=== PATIENT | male | born 1935 | race Caucasian/White ===

== ENCOUNTER 2018-01-09 07:30 | Inpatient (IN) | payer MEDICARE, BC ==
[2018-01-09] MEDS ORDERED: Rocuronium 50 MG/5 ML Vial ONE (08:18)
[2018-01-09] MEDS ORDERED: Dexamethasone 4 MG/ML SDV ONE (08:18)
[2018-01-09] MEDS ORDERED: Ondansetron 4 MG/2 ML SDV ONE (08:18)
[2018-01-09] MEDS ORDERED: fentaNYL 250 MCG/5 ML SDV ONE (08:18)
[2018-01-09] MEDS ORDERED: Propofol 200 MG/20 ML SDV ONE ×3 (08:18→13:31)
[2018-01-09] MEDS ORDERED: Succinylcholine 200 MG/10 ML MDV ONE (08:18)
[2018-01-09] MEDS ORDERED: Povidone-Iodine 10% Soln 118.25 ML Bottle ONE (09:11)
[2018-01-09] MEDS ORDERED: Thrombin (Bovine) 5,000 Unit Kit ONE (09:11)
[2018-01-09] MEDS ORDERED: Acetaminophen 500 MG Tab PO ONE (10:15)
[2018-01-09] MEDS ORDERED: Scopolamine 1.5 MG Transdermal Patch TOP SCH (10:15)
[2018-01-09] MEDS ORDERED: Gabapentin 300 MG Cap PO ONE (10:15)
[2018-01-09] MEDS: Lactated Ringers 1,000 ML IV SCH (10:48)
[2018-01-09] MEDS ORDERED: ceFAZolin 2 GM in Premix Bag 1 BAG IV ONE (11:45)
[2018-01-09] MEDS ORDERED: Ketamine 500 MG/5 ML MDV IV SCH (11:45)
[2018-01-09] MEDS ORDERED: Ropivacaine 49.25 ML, Ketorolac 30 MG, EPINEPHrine 0.5 MG, cloNIDine 80 MCG, Sodium Chl... INJECT ONE ×5 (11:45)
[2018-01-09] MEDS ORDERED: Gelatin Sponge,Absorbable Pwd 1 GM Pkt ONE (12:30)
[2018-01-09] MEDS ORDERED: fentaNYL 100 MCG/2 ML SDV ONE (13:12)
[2018-01-09] MEDS: SODIUM CHLORIDE 0.9% IV SCH ×2 (13:13→15:19)
[2018-01-09] MEDS: TRANEXAMIC ACID IV SCH ×2 (13:13→15:19)
[2018-01-09] MEDS ORDERED: ePHEDrine 50 MG/ML SDV ONE (13:28)
[2018-01-09] MEDS ORDERED: Labetalol 20 MG/4 ML Syringe ONE (14:45)
[2018-01-09] MEDS ORDERED: Lactated Ringers 1,000 ML ONE (14:46)
[2018-01-09] MEDS ORDERED: oxyCODONE 5 MG Tab PO PRN (15:13)
[2018-01-09] MEDS ORDERED: Naloxone 0.4 MG/ML SDV IVPUSH PRN (15:13)
[2018-01-09] MEDS ORDERED: Acetaminophen 1,000 MG in Premix Bag 1 BAG IV ONE ×2 (15:13→16:30)
[2018-01-09] MEDS ORDERED: HYDROmorphone 1 MG/ML Syringe IVPUSH PRN (15:13)
[2018-01-09] MEDS ORDERED: Ondansetron 4 MG/2 ML SDV IVPUSH PRN (15:13)
[2018-01-09] MEDS ORDERED: Aluminum Hydroxide/Magnesium Hydroxide/Simethicone Susp 30 ML Cup PO PRN (15:13)
[2018-01-09] MEDS ORDERED: ceFAZolin 1 GM in Sodium Chloride 0.9% 50 ML IV SCH ×2 (15:15→18:00)
--- NOTE | 2018-01-09 17:04 | PCM.CONS ---
H&P History of Present Illness - General Date of Service: 01/09/18 Admit Problem/Dx: Admission Diagnosis/Problem Admission Diagnosis/Problem Lumbar spinal fusion Source of Information: Patient, Family, Provider, RN Notes Reviewed History Limitations: Reports: No Limitations - History of Present Illness Initial Comments - Free Text/Narative: Mr. Welsh is an 82-year-old gentleman who been asked to see by Dr. Roberto Wynn for assistance in medical management during the postoperative period. Mr. Welsh underwent spinal surgery earlier today by Dr. Wynn, he is doing well during the initial postoperative period. Denies symptoms of chest pain, shortness of breath, nausea or vomiting, and reports that his pain control is adequate. He is very healthy given his age and denies other significant problems. - Related Data Allergies/Adverse Reactions: Allergies Allergy/AdvReac Type Severity Reaction Status Date / Time No Known Allergies Allergy Verified 01/09/18 10:59 Home Medications: Home Meds Diclofenac Sodium [Voltaren] 1 applicful TOP ASDIRECTED 07/06/15 [History] Ezetimibe [Zetia] 10 mg PO DAILY 07/06/15 [History] Aspirin [Halfprin] 81 mg PO DAILY 07/12/16 [History] traMADol [Ultram] 50 mg PO Q8H PRN 07/12/16 [History] Past Medical History HEENT History: Reports: Impaired Vision Other HEENT History: nosebleeds Cardiovascular History: Reports: Prior Cardiac Arrest, Stents Musculoskeletal History: Reports: Back Pain, Chronic Other Musculoskeletal History: finger. probs with sciatica L leg. chronic pain shoulder R - Infectious Disease History Infectious Disease History: Reports: Chicken Pox, Measles, Mumps - Past Surgical History Head Surgeries/Procedures: Reports: None HEENT Surgical History: Reports: Cataract Surgery, Tonsillectomy Cardiovascular Surgical History: Reports: None, Coronary Artery Stent GI Surgical History: Reports: Colonoscopy Other Endocrine Surgeries/Procedures: thyroid bx negative Musculoskeletal Surgical History: Reports: None Dermatological Surgical History: Reports: None Social & Family History - Family History Family Medical History: Noncontributory - Tobacco Use Smoking Status *Q: Former Smoker Years of Tobacco use: 40 Used Tobacco, but Quit: Yes Month Tobacco Last Used: 1997 Second Hand Smoke Exposure: No - Caffeine Use Caffeine Use: Reports: None - Recreational Drug Use Recreational Drug Use: No H&P Review of Systems - Review of Systems: Review Of Systems: See Below Pulmonary: Reports: No Symptoms Cardiovascular: Reports: No Symptoms Gastrointestinal: Reports: No Symptoms Musculoskeletal: Reports: Back Pain Skin: Reports: No Symptoms Exam - Exam Exam: See Below - Vital Signs Vital Signs: Last Vital Signs Temp 95.3 F L 01/09/18 16:00 Pulse 73 01/09/18 16:00 Resp 16 01/09/18 16:00 BP 119/52 L 01/09/18 16:00 Pulse Ox 92 L 01/09/18 16:00 Weight: 148 lb - Exam Quality Assessment: DVT Prophylaxis General: Alert, Oriented, Cooperative, Mild Distress Neck: Supple, Trachea Midline, +2 Carotid Pulse wo Bruit Lungs: Clear to Auscultation, Normal Respiratory Effort Cardiovascular: Regular Rate, Regular Rhythm, Normal S1, Normal S2. No: Systolic Murmur, Diastolic Murmur GI/Abdominal Exam: Soft, Non-Tender, No Organomegaly, No Distention Extremities: Non-Tender, No Pedal Edema - Patient Data Lab Results Last 24 hrs: Laboratory Results - last 24 hr 01/09/18 Range/Units 10:15 Blood Type O POSITIVE Gel Antibody Screen Negative Consult PN Assessment/Plan Procedures: Procedures ASSAY OF CK (CPK) (07/06/15) ASSAY OF TROPONIN QUANT (07/06/15) BLOOD TYPING SEROLOGIC ABO (12/31/17) BLOOD TYPING SEROLOGIC RH(D) (12/31/17) CHEST X-RAY 2VW FRONTAL&LATL (07/06/15) COMPLETE CBC AUTOMATED (12/31/17) COMPLETE CBC W/AUTO DIFF WBC (07/06/15) COMPREHEN METABOLIC PANEL (12/31/17) CULTURE OTHR SPECIMN AEROBIC (12/31/17) ELECTROCARDIOGRAM TRACING (12/31/17) EMERGENCY DEPT VISIT (07/06/15) INJECT SPINE LUMBAR/SACRAL (10/04/16) MANUAL THERAPY 1/> REGIONS (07/30/15) MRI JNT OF LWR EXTRE W/O DYE (08/30/15) MRI LUMBAR SPINE W/O DYE (12/19/17) NJX INTERLAMINAR LMBR/SAC (08/08/17) OFFICE/OUTPATIENT VISIT NEW (11/16/16) ORTHOTIC MGMT&TRAINJ 1ST ENC (01/02/18) PT EVALUATION (06/01/15) RBC ANTIBODY SCREEN (12/31/17) ROUTINE VENIPUNCTURE (12/31/17) SELF CARE MNGMENT TRAINING (01/02/18) THERAPEUTIC EXERCISES (07/30/15) ULTRASOUND THERAPY (06/01/15) URINALYSIS AUTO W/O SCOPE (12/31/17) URINALYSIS AUTO W/SCOPE (07/06/15) X-RAY EXAM L-2 SPINE 4/>VWS (12/31/17) X-RAY EYE FOR FOREIGN BODY (06/10/15) Problem List Initiated/Reviewed/Updated: Yes My Orders Last 24 Hours: My Active Orders 01/10/18 09:00 Ezetimibe [Zetia] 10 mg PO DAILY Plan: ASSESSMENT AND RECOMMENDATIONS STATUS POST SPINE SURGERY-stable during the immediate postoperative period -Postoperative care per Dr. Roberto Wynn HYPERCHOLESTEROLEMIA -Continue outpatient medical management Requesting Provider: RODERICK Date Consult Requested: 01/09/18 Reason for Consult: Postoperative medical management Patient History Reviewed: Yes Admission H&P Reviewed: Yes
[2018-01-09] MEDS: ceFAZolin 1 GM in Premix Bag 1 BAG IV SCH (17:48)
[2018-01-09] MEDS ORDERED: Magnesium Hydroxide 400 MG/5 ML Susp 30 ML Cup PO SCH (21:00)
[2018-01-09] MEDS ORDERED: Sennosides 8.6 MG Tab PO SCH (21:00)
[2018-01-09] MEDS: Magnesium Hydroxide 400 MG/5 ML Susp 30 ML Cup PO SCH (21:02)
[2018-01-09] MEDS: Sennosides 8.6 MG Tab PO SCH (21:03)
--- NOTE | 2018-01-09 23:19 | OR ---
DATE OF PROCEDURE: 01/09/2018 PREOPERATIVE DIAGNOSES: 1. Lumbar stenosis, L3-L4 and L4-L5. 2. Lumbar spondylolisthesis, L3-L4 and L4-L5. 3. Lumbar radiculopathy, L3-L4 and L4-L5 with neurogenic claudication. POSTOPERATIVE DIAGNOSES: 1. Lumbar stenosis, L3-L4 and L4-L5. 2. Lumbar spondylolisthesis, L3-L4 and L4-L5. 3. Lumbar radiculopathy, L3-L4 and L4-L5 with neurogenic claudication. PROCEDURES: 1. Posterior lumbar fusion, L3-L4. 2. Posterior lumbar fusion, L4-L5. 3. Posterior instrumentation, L3-L4 and L4-L5. 4. Decompression required in addition to fusion at L3-L4. 5. Decompression required in addition to fusion L4-L5. 6. Autograft obtained from lamina of L3-L4 and L4-L5 mixed with Glob[employer] Signify allograft and placed in posterior lateral gutters of the transverse processes bilaterally. WAITER/WAITRESS COUNTER: DENNIS Garcia. Physician rn first assistant, Anita Klein NP, played an essential role in assisting in this case, helping to position the patient, retract structures as needed, as well as suturing and cutting sutures as indicated. Her presence improved patient's safety and decreased operative time. ANESTHESIA: General endotracheal intubation. FLUIDS: Lactated Ringer's solution. ESTIMATED BLOOD LOSS: 150 mL. COMPLICATIONS: None. SPECIMEN: None. DISCHARGE DISPOSITION: Stable to PACU. HISTORY AND INDICATIONS FOR THE PROCEDURE: The patient was seen preoperatively in the clinic. He had failed nonoperative treatment including medical management, exercise, and epidural steroid injections. He was starting to suffer from increased neurogenic claudication and weakness. Preoperative imaging confirmed the above-mentioned diagnosis. Risks and benefits of the procedure were explained to the patient. Informed consent was obtained. DETAILS OF THE PROCEDURE: The patient was seen preoperatively by myself and the Anesthesia staff in the preop holding area where the operative site was marked. He was brought to the operative suite by the Anesthesia staff where general anesthesia was administered. Neuromonitoring leads were placed, normal at baseline and remained normal throughout the case. Sterile Pruett catheter was placed. The fluoroscopy unit was sterilely draped. The patient was then flipped onto a Anupam table. All extremities were found to be well padded. The patient was then prepped and draped in a sterile manner. Time-out was called identifying the correct patient, correct procedure, the correct site, and antibiotics had begun within appropriate period of time. Lateral fluoroscopy was then used to identify the L3 through L5 pedicles. A midline incision was made over the spinous processes of L2 through L5. Bleeding during the case was controlled with Bovie electrocautery and Aquamantys 5.0 unit. We used cerebellars for initial superficial retraction. I then used a Bovie electrocautery and a Katz elevator to go down over the respective laminas of L3 through L5, over the respective lamina facets, pars, and down to the transverse processes bilaterally of L3, L4, and L5. After this had been accomplished, I inserted two 65 mm Versa- Trac blades for retraction. I also used a cerebellar deeply for retraction at times. I then used Bovie electrocautery to clear any soft tissue off as well as rongeurs and used Kerrison to remove the overgrown facet joints dorsally and laterally in order to identify the pars at L3-L4 and L4-L5. I then started on the right side and placed my L5 pedicle screw first. The process for this was to drill to the lateral aspect of the pars at the middle point of the transverse process. I then use a PediGuard unit from [employer] to create the track through the pedicle and then used a pedicle probe to ensure that I was in the pedicle and then placed an undersized tap by 2 mm, then pedicle probe again and then placed my final screw. All screws were 6.5 x 50 mm with the exception of the right L4 screw, which was a 45 mm. At times, I would check to make sure that our position was good on our AP including our lateral. I did the right side, then did the same process on the left side. After this had been completed, I took films to ensure that the screws were in good position and then tested them, all screws tested well within normal limits with a low screw testing at 17. After this had been accomplished, I then focused on our laminectomy. I then removed our supraspinous ligaments and interspinous ligaments at L3-L4 and L4-L5. I then removed the inferior spinous process of L3 and then the remainder of the spinous process of L3 and then using medium rongeurs removed as much of the inferior lamina as possible. I then used 5 Kerrison to go from inferior to superior to the lamina where the ligamentum flavum attached and then went laterally bilaterally. At that point, I did use a long ball and protected the dura underneath the flavum with the cottonoid and then removed the flavum as well as performing medial facetectomies bilaterally. I then confirmed our peak decompression on fluoroscopy and was able to pass the long ball out the foramen bilaterally. I repeated this again at L4-L5 and confirmed our levels. After this had been accomplished, I placed a small amount of FloSeal bilaterally in the lateral recesses and then tamped access with a Ray-Nereida. We then focused on placing the rods. We placed two 75 mm rods, placed the setscrews, and then tied these down to torque specifications. We then copiously irrigated with 3 L Betadine infused irrigation. I then decorticated the transverse processes bilaterally and then used the graft from our laminectomy. It was mixed with Signify from [employer] which was an allograft and then placed bilaterally over the transverse processes in the posterior lateral gutters. After this had been accomplished, I then applied the remainder of the FloSeal, tamped the excess and dry, and then applied 1-1/2 packets of Gelfoam powder. We then closed deeply with 1 Stratafix, 2 Stratafix, 3-0 Stratafix, and finally Prineo. Sterile dressing was then placed and the patient was then flipped to the supine position on the Anupam table. We discontinued monitoring. He was flipped onto his hospital bed. Neuromonitoring leads were removed and he was taken to the PACU in stable condition. Johnny Wynn DO /[id number]
[2018-01-10] MEDS: ceFAZolin 1 GM in Premix Bag 1 BAG IV SCH ×2 (02:00→10:20)
[2018-01-10] MEDS ORDERED: Lactated Ringers 250 ML IV ONE (03:15)
--- NOTE | 2018-01-10 03:21 | PCM.SN ---
- Free Text/Narrative Note: time 3:10 AM call from 2 N. nursing concerns of low blood pressure, 93/40 pulse 64 respirations 16, O2 sat 94% a; hypotensive p; give fluid bolus lactated Ringer's 250 ML's over one hour then return to previous rate of 100ml/hr Continue present plan of care
[2018-01-10] MEDS: Lactated Ringers 1,000 ML IV SCH (05:15)
[2018-01-10] MEDS ORDERED: Sodium Chloride 0.9% 250 ML IV SCH (07:45)
[2018-01-10] MEDS ORDERED: Ezetimibe 10 MG Tab PO SCH (09:00)
[2018-01-10] MEDS: Sennosides 8.6 MG Tab PO SCH (10:21)
[2018-01-10] MEDS: Magnesium Hydroxide 400 MG/5 ML Susp 30 ML Cup PO SCH (10:21)
[2018-01-10 11:15] VITALS: BP 90/42
[2018-01-10] MEDS ORDERED: Acetaminophen/oxyCODONE 325-5 MG Tab PO PRN (15:13)
== END 2018-01-10 16:21 | disposition home or self-care (01) | DRG 460 ==
LOC: EDSTATUS 07:30 → JP.SDSSCHI 10:02 → JP.SDS 10:02 → JP.MS 15:13
PROVIDERS: ADMIT Nurse Practitioner Family; ATTEND Orthopaedic Surgery
PROC: 01NB0ZZ Release Lumbar Nerve, Open Approach (ICD-10-PCS; principal; 2018-01-09)
PROC: 0SG1071 Fusion of 2 or more Lumbar Vertebral Joints with Autologous Tissue Substitute, Posterior Approach, Posterior Column, Open Approach (ICD-10-PCS; 2018-01-09)
DX: M48.062 Spinal stenosis, lumbar region with neurogenic claudication (principal); M43.16 Spondylolisthesis, lumbar region; M54.16 Radiculopathy, lumbar region
CPT/HCPCS: 36415; 76001; 80048; 85025; 86850; 86900; 86901; 97162-GP; 97165-GO; 97530-GP; 97535-GP; A9270-GY; J0131; J0171; J0330; J0690; J0735; J1100; J1170; J1885; J2405; J2704; J2795; J3010; J3490; J7030; J7050; J7120

== ENCOUNTER 2018-01-12 11:59 | Emergency (ER) | payer MEDICARE, BC ==
[2018-01-12 12:40] VITALS: BP 99/42
--- NOTE | 2018-01-12 13:27 | EDM.PDOC ---
ED HPI GENERAL MEDICAL PROBLEM - General Chief Complaint: Wound Recheck Stated Complaint: BACK DRAINAGE SURGERY 01/09/18 Time Seen by Provider: 01/12/18 13:15 Source of Information: Reports: Patient, Old Records History Limitations: Reports: No Limitations - History of Present Illness INITIAL COMMENTS - FREE TEXT/NARRATIVE: 82 yo male had spinal fusion the middle of this past week. Today he had drainage from the wound. No fever. Is not getting adequate pain relief with his current medication dosing. Onset: Today Onset Date: 01/12/18 Onset Time: 11:00 Duration: Minutes:, Improving Location: Reports: Back (low) Quality: Reports: Throbbing (since surgery) Severity: Mild (drainage now less after initial spurt of fluid) Improves with: Reports: Other (? time, is slowing) Worsens with: Reports: None Context: Reports: Other (Recent spinal surgery) Associated Symptoms: Reports: No Other Symptoms Treatments MECHANICAL FITTER: Reports: Other (see below) (Tramadol 50 mg q 8 h without adequate relief.) Lower Back Pain Score (Numeric/FACES): 8 - Related Data Allergies Allergy/AdvReac Type Severity Reaction Status Date / Time No Known Allergies Allergy Verified 01/12/18 12:58 Home Meds: Home Meds Diclofenac Sodium [Voltaren] 1 applicful TOP ASDIRECTED 07/06/15 [History] Ezetimibe [Zetia] 10 mg PO DAILY 07/06/15 [History] Aspirin [Halfprin] 81 mg PO DAILY 07/12/16 [History] traMADol [Ultram] 50 mg PO Q8H PRN 07/12/16 [History] Acetaminophen/oxyCODONE [Percocet 325-5 MG] 1 tab PO Q6HR PRN #90 tablet [Rx] Past Medical History HEENT History: Reports: Impaired Vision Other HEENT History: nosebleeds Cardiovascular History: Reports: DC, Prior Cardiac Arrest, Stents Musculoskeletal History: Reports: Back Pain, Chronic Other Musculoskeletal History: finger. probs with sciatica L leg. chronic pain shoulder R - Infectious Disease History Infectious Disease History: Reports: Chicken Pox, Measles, Mumps - Past Surgical History HEENT Surgical History: Reports: Cataract Surgery, Tonsillectomy Cardiovascular Surgical History: Reports: Coronary Artery Stent GI Surgical History: Reports: Colonoscopy Endocrine Surgical History: Reports: Thyroid Biopsy Other Endocrine Surgeries/Procedures: thyroid bx negative Neurological Surgical History: Reports: Other (See Below) Other Neurological Surgeries/Procedures: fixed herniated disc 01/09/2018 Social & Family History - Family History Family Medical History: Noncontributory - Tobacco Use Smoking Status *Q: Never Smoker Years of Tobacco use: 40 Used Tobacco, but Quit: Yes Month Tobacco Last Used: 1997 Second Hand Smoke Exposure: No - Caffeine Use Caffeine Use: Reports: None - Recreational Drug Use Recreational Drug Use: No ED ROS GENERAL - Review of Systems Review Of Systems: See Below Constitutional: Reports: No Symptoms Respiratory: Reports: No Symptoms Cardiovascular: Reports: No Symptoms GI/Abdominal: Reports: No Symptoms : Reports: No Symptoms Musculoskeletal: Reports: Back Pain (since surgery) Skin: Reports: Wound (surgical wound to low lumbar spine) Neurological: Reports: No Symptoms ED EXAM, SKIN/RASH Exam: See Below Exam Limited By: No Limitations General Appearance: Alert, WD/WN, No Apparent Distress Head: Atraumatic, Normocephalic Respiratory/Chest: No Respiratory Distress, No Accessory Muscle Use Cardiovascular: Regular Rate, Rhythm GI/Abdominal: Normal Bowel Sounds, Soft, Non-Tender, No Distention Back Exam: Normal Inspection. No: CVA Tenderness (R), CVA Tenderness (L) Extremities: Normal Inspection, Normal Range of Motion Neurological: Alert, Oriented, CN II-XII Intact, Normal Cognition, No Motor/ Sensory Deficits Psychiatric: Normal Affect, Normal Mood Skin: Warm, Dry, Normal Color, No Rash, Wound/Incision (surgical wound lower lumbar spine). No: Diaphoretic, Ecchymosis, Erythema, Increased Warmth Location, Skin: Back (low lumbar) Characteristics: Linear Associated features: Tenderness. No: Warmth, Swelling, Induration Lymphatic: No Adenopathy Course - Vital Signs Last Recorded V/S: Last Vital Signs Temp 36.5 C 01/12/18 12:56 Pulse 64 01/12/18 12:56 Resp 16 01/12/18 12:56 BP 99/42 L 01/12/18 12:56 Pulse Ox 95 01/12/18 12:56 Departure - Departure Time of Disposition: 13:30 Disposition: Home, Self-Care 01 Condition: Good Clinical Impression: Encounter for wound re-check - Discharge Information Referrals: Francis Gomez MD [Primary Care Provider] - Forms: ED Department Discharge Additional Instructions: May increase tramadol to 2 every 6 hrs as needed for pain control. Also, may take acetaminophen 1000 mg every 6 hrs for added relief. Recheck next week with Dr. Wynn if you still have questions/concerns.
== END 2018-01-12 13:39 | disposition home or self-care (01) ==
LOC: JP.ED 11:59
DX: Z47.89 Encounter for other orthopedic aftercare (principal); Z87.891 Personal history of nicotine dependence; Z95.5 Presence of coronary angioplasty implant and graft; Z79.82 Long term (current) use of aspirin; Z79.899 Other long term (current) drug therapy; Z98.890 Other specified postprocedural states; Z98.1 Arthrodesis status
CPT/HCPCS: 99283

== ENCOUNTER 2018-03-28 05:42 | Day surgery (SDC) | payer MEDICARE, BC ==
[2018-03-28] MEDS ORDERED: Dextrose 5%-Lactated Ringers 1,000 ML IV SCH (06:00)
[2018-03-28] MEDS ORDERED: Glycopyrrolate 0.2 MG/ML 2 ML SDV IVPUSH ONE (07:00)
[2018-03-28] MEDS ORDERED: Midazolam 1 MG/ML 2 ML SDV ONE (07:04)
[2018-03-28] MEDS ORDERED: fentaNYL 100 MCG/2 ML SDV ONE (07:04)
[2018-03-28] MEDS ORDERED: Propofol 200 MG/20 ML SDV ONE (07:04)
[2018-03-28] MEDS ORDERED: Iohexol 647 MG/ML 10 ML SDV PO PRN (09:04)
[2018-03-28] MEDS ORDERED: Iopamidol 612 MG/ML 100 ML Bottle IV PRN (09:04)
[2018-03-28] MEDS ORDERED: Sodium Chloride 0.9% 80 ML IV SCH (09:15)
[2018-03-28 10:08] VITALS: BP 129/68
--- NOTE | 2018-03-28 10:47 | CT ---
Chest Abdomen Pelvis w Cont INDICATION: Distal Esophago mass noted on EGD TECHNIQUE: CT images of the chest, abdomen and pelvis performed. Coronal reformatted images obtaine d. Exam performed with oral and IV contrast Dosage reduction and iterative reconstruction techniques employed. COMPARISON: None FINDINGS: Chest: There is distal esophageal wall thickening consistent with clinical history of distal esophage al mass. This is at the level of the GE junction and appears to extend partly into the cardia of the stomach. Proximal to this the esophagus is mildly distended with air and contrast. No mediastinal solitario nopathy. 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 There are coronary artery calcifications. No suspicious pulmonary nodules. No pleural effusions. Abdomen pelvis: Multiple hepatic masses consistent with metastatic disease, largest in the right lobe posteriorly measuring 5.7 cm. Adrenal glands negative. No renal masses. There is retroperitoneal solitario nopathy. Largest node measures 2.5 cm. No ascites. Prostate is mildly enlarged. Postoperative changes fusion L3-L5. No suspicious bone lesions seen. IMPRESSION: Distal esophageal wall thickening extending to the cardia the stomach consistent with c linical history of esophageal mass. Hepatic metastases and retroperitoneal adenopathy. Discussed with Dr. Parveen Wynn.
--- NOTE | 2018-04-02 15:17 | OR ---
DATE OF PROCEDURE: 03/28/2018 PREOPERATIVE DIAGNOSIS: Dysphagia and weight loss. 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 OPERATIVE PROCEDURE: Esophagogastroduodenoscopy with biopsies of distal esophageal mass. ANESTHESIA: IV sedation. INDICATION FOR PROCEDURE: This is an 82-year-old, who is presenting with some dysphagia and weight loss. He is undergoing upper GI endoscopy with biopsies or dilation as indicated. Potential risks including bleeding and perforation were discussed, and the patient wishes to proceed. DETAILS OF PROCEDURE: The patient was taken to the operating room and placed in a left lateral decubitus position. IV sedation was administered, after which the upper GI endoscope was passed orally through the length of the esophagus and into the stomach with retroflexion view of the fundus, thereafter through the pyloric channel and into the proximal duodenum. Findings included normal hypopharynx, larynx, upper esophageal sphincter. Unfortunately, abnormal distal esophagus. The patient was noted to have a large mass located just above the esophagogastric junction. There was a small secondary mass extending above the mucosal surface, just proximal to that. This was friable and highly suggestive of a carcinoma. Beyond that, there was a small hiatal hernia present. Remainder of the gastric and duodenal exams were unremarkable. At this point, multiple biopsies were obtained from the esophageal mass and sent for histologic evaluation. Minimal bleeding from the biopsy site was seen and the procedure was then concluded. The patient will have a CT scan of the chest and abdomen and pelvis today for additional staging of what is likely a distal esophageal carcinoma. Also obtained CBC, CMP, and CEA and the patient will be set up an appointment with Medical Oncology next week. Joce Wynn MD /[id number]
== END 2018-03-28 11:02 | disposition home or self-care (01) ==
LOC: JP.SDS 05:42
PROVIDERS: ATTEND Surgery
DX: C15.5 Malignant neoplasm of lower third of esophagus (principal); K44.9 Diaphragmatic hernia without obstruction or gangrene; I10 Essential (primary) hypertension; Z88.5 Allergy status to narcotic agent
CPT/HCPCS: 36415; 43239; 71260; 74177; 80053; 82378; 85027; J2250; J2704; J3010; J7030; J7042; Q9967; 88305; 88341; 88342; J3490

== ENCOUNTER 2018-04-11 22:36 | Emergency (ER) | payer MEDICARE, BC ==
--- NOTE | 2018-04-11 23:13 | EDM.PDOC ---
ED HPI GENERAL MEDICAL PROBLEM - General Chief Complaint: Chest Pain Stated Complaint: MEDICAL VIA NORTH Time Seen by Provider: 04/11/18 22:50 Source of Information: Reports: Patient, EMS, Family History Limitations: Reports: No Limitations - History of Present Illness INITIAL COMMENTS - FREE TEXT/NARRATIVE: 82-year-old male arrives by ambulance after a near syncopal episode and chest pain. He has known esophageal cancer, had an oncology consult 2 days ago and an echocardiogram this morning to evaluate for starting chemotherapy. He does have a history of an [place] 22 years ago. Tonight when he laid down he had pain in his back, after 10 minutes it moved to his chest. He did not feel short of breath or diaphoretic, he did take a nitroglycerin which helped, a second nitroglycerin and the pain was gone. He then got up and was very lightheaded and dizzy, diaphoretic and almost fainted so called the ambulance. His symptoms are now gone. Been complaining of dark stools for the past couple of weeks. The oncologist thought his tumor may be bleeding. Onset: Sudden Duration: Minutes: (Pain lasted 15-20 minutes) Location: Reports: Chest, Back Severity: Moderate Associated Symptoms: Reports: Diaphoresis, Malaise, Syncope, Weakness - Related Data Allergies Allergy/AdvReac Type Severity Reaction Status Date / Time tramadol Allergy Vomiting Verified 01/14/18 13:05 Home Meds: Home Meds Diclofenac Sodium [Voltaren] 1 applicful TOP ASDIRECTED 07/06/15 [History] Ezetimibe [Zetia] 10 mg PO DAILY 07/06/15 [History] Aspirin [Halfprin] 81 mg PO DAILY 07/12/16 [History] Multivitamin [Multi-Vitamin Daily] 1 each PO DAILY 03/26/18 [History] Nitroglycerin [Nitrostat] 0.4 mg SL ASDIRECTED PRN 03/26/18 [History] Tadalafil [Cialis] 10 mg PO DAILY PRN 03/26/18 [History] [place] 1 tab PO BID 03/28/18 [History] Past Medical History HEENT History: Reports: Impaired Vision Other HEENT History: nosebleeds; wears glasses Cardiovascular History: Reports: [place], Prior Cardiac Arrest, Stents Gastrointestinal History: Reports: Chronic Diarrhea, GERD Musculoskeletal History: Reports: Back Pain, Chronic, Other (See Below) Other Musculoskeletal History: finger. probs with sciatica L leg. chronic pain shoulder R. Low back incision check Neurological History: Reports: None Endocrine/Metabolic History: Reports: None Oncologic (Cancer) History: Reports: Esophageal - Infectious Disease History Infectious Disease History: Reports: Chicken Pox, Measles, Mumps - Past Surgical History Head Surgeries/Procedures: Reports: None HEENT Surgical History: Reports: Cataract Surgery, Tonsillectomy Cardiovascular Surgical History: Reports: Coronary Artery Stent GI Surgical History: Reports: Colonoscopy Endocrine Surgical History: Reports: Thyroid Biopsy Neurological Surgical History: Reports: Other (See Below) Other Neurological Surgeries/Procedures: fixed herniated disc 01/09/2018 Musculoskeletal Surgical History: Reports: Other (See Below) Other Musculoskeletal Surgeries/Procedures:: s/p lumbar fusion Dermatological Surgical History: Reports: None Social & Family History - Family History Family Medical History: Noncontributory - Tobacco Use Smoking Status *Q: Never Smoker - Caffeine Use Caffeine Use: Reports: Coffee, Soda, Tea - Recreational Drug Use Recreational Drug Use: No ED ROS GENERAL - Review of Systems Review Of Systems: See Below Constitutional: Reports: Malaise, Weakness. Denies: Fever, Chills, Weight Gain HEENT: Reports: No Symptoms Respiratory: Denies: Shortness of Breath Cardiovascular: Reports: Chest Pain, Lightheadedness GI/Abdominal: Reports: Black Stool. Denies: Abdominal Pain, Nausea, Vomiting : Reports: No Symptoms Skin: Reports: Pallor, Diaphoresis Neurological: Reports: Dizziness, Weakness ED EXAM, GENERAL - Physical Exam Exam: See Below Exam Limited By: No Limitations General Appearance: Alert, No Apparent Distress Eye Exam: Bilateral Eye: Other (Pale conjunctiva) Respiratory/Chest: No Respiratory Distress, Lungs Clear, Other (I cannot reproduce chest wall tenderness with palpation) Cardiovascular: Regular Rate, Rhythm. No: Tachycardia GI/Abdominal: Soft, Non-Tender Extremities: No: Pedal Edema Neurological: Alert, Oriented Psychiatric: Normal Affect, Normal Mood Skin Exam: Pallor Course - Vital Signs Last Recorded V/S: Last Vital Signs Temp 97.8 F 04/11/18 22:43 Pulse 68 04/12/18 00:45 Resp 16 04/12/18 00:45 BP 107/46 L 04/12/18 00:45 Pulse Ox 96 04/12/18 00:45 - Orders/Labs/Meds Orders: Active Orders 24 hr Category Date Time Status Chest 2V [CR] Routine Exams 04/12/18 00:22 Taken Labs: Laboratory Tests 04/11/18 04/11/18 04/11/18 Range/Units 23:19 23:19 23:19 WBC 6.4 (4.5-11.0) K/uL RBC 2.29 L (4.30-5.90) M/uL Hgb 7.2 L D (12.0-15.0) g/dL Hct 22.0 L (40.0-54.0) % MCV 96 (80-98) fL MCH 31 (27-31) pg MCHC 33 (32-36) % Plt Count 210 (150-400) K/uL Neut % (Auto) 79 H (36-66) % Lymph % (Auto) 7 L (24-44) % [place] % (Auto) 13 H (2-6) % Eos % (Auto) 1 L (2-4) % Baso % (Auto) 0 (0-1) % Sodium 138 L (140-148) mmol/L Potassium 4.3 (3.6-5.2) mmol/L Chloride 105 (100-108) mmol/L Carbon Dioxide 26 (21-32) mmol/L Anion Gap 11.3 (5.0-14.0) mmol/L BUN 25 H (7-18) mg/dL Creatinine 1.1 (0.8-1.3) mg/dL Est Cr Clr Drug Dosing 42.44 mL/min Estimated GFR (MDRD) > 60 (>60) Glucose 116 H (74-106) mg/dL Calcium 7.8 L (8.5-10.1) mg/dL Total Bilirubin 0.3 (0.2-1.0) mg/dL AST 96 H D (15-37) U/L ALT 75 D (12-78) U/L Alkaline Phosphatase 316 H (46-116) U/L Troponin I 1.083 H* (0.000-0.056) ng/mL Total Protein 5.4 L (6.4-8.2) g/dL Albumin 2.3 L (3.4-5.0) g/dL Globulin 3.1 (2.3-3.5) g/dL Albumin/Globulin Ratio 0.7 L (1.2-2.2) - Re-Assessments/Exams Free Text/Narrative Re-Assessment/Exam: 04/11/18 23:12 CBC, CMP and troponin were obtained. Records from [place] were obtained, his hemoglobin was 9.2 yesterday. 04/11/18 23:33 Hemoglobin is now 7.2. Troponin was 1.08. Patient did not redevelop any symptoms. Phone consultation was made to [facility] and acceptance was obtained from the hospitalist service. 04/12/18 03:52 Chest xray normal Departure - Departure Time of Disposition: 02:06 Disposition: DC/Tfer to Other 70 Condition: Fair Clinical Impression: Blood loss anemia, Elevated troponin GI bleed Qualifiers: GI bleed type/associated pathology: unspecified gastrointestinal hemorrhage type Qualified Code(s): K92.2 - Gastrointestinal hemorrhage, unspecified Esophageal cancer Qualifiers: Malignant neoplasm of esophagus location: lower third Qualified Code(s): C15.5 - Malignant neoplasm of lower third of esophagus - Discharge Information Referrals: PCP,None [Primary Care Provider] - Forms: ED Department Discharge Care Plan Goals: Patient is be transferred to [facility] to the hospitalist service for cardiology, oncology and gastroenterology consultations. - My Orders Last 24 Hours: My Active Orders 04/12/18 00:22 Chest 2V [CR] Routine - Assessment/Plan Last 24 Hours: My Active Orders 04/12/18 00:22 Chest 2V [CR] Routine
[2018-04-12 01:15] VITALS: BP 107/46
--- NOTE | 2018-04-12 09:04 | CR ---
CHEST: 2 view CLINICAL HISTORY:Vomiting COMPARISON:2014 FINDINGS: Heart size and pulmonary vascularity are normal. There are atherosclerotic changes in the aorta. No infiltrate, effusion or pneumothorax is seen. IMPRESSION: No acute cardiopulmonary process or significant change from prior study
== END 2018-04-12 01:55 | disposition other institution (70) ==
LOC: JP.ED 22:36
DX: C15.5 Malignant neoplasm of lower third of esophagus (principal); D50.0 Iron deficiency anemia secondary to blood loss (chronic); K92.2 Gastrointestinal hemorrhage, unspecified; R79.89 Other specified abnormal findings of blood chemistry; I25.2 Old myocardial infarction; K21.9 Gastro-esophageal reflux disease without esophagitis; Z79.899 Other long term (current) drug therapy; Z88.5 Allergy status to narcotic agent; Z79.82 Long term (current) use of aspirin
CPT/HCPCS: 36415; 71046; 71046-26; 80053; 84484; 85025; 99285

== ENCOUNTER 2018-04-23 22:47 | Emergency (ER) | payer MEDICARE, BC ==
--- NOTE | 2018-04-23 22:55 | EDM.PDOC ---
ED HPI GENERAL MEDICAL PROBLEM - General Chief Complaint: Chest Pain Stated Complaint: MEDICAL VIA NORTH Time Seen by Provider: 04/23/18 22:50 Source of Information: Reports: Patient, EMS, Family, Old Records History Limitations: Reports: No Limitations - History of Present Illness INITIAL COMMENTS - FREE TEXT/NARRATIVE: 82 yo male with a remote hx of CAD is currently being tx'd for esophageal CA. He is getting mainly palliative care, but did get chemo today. His hgb this morning was 11.5. He was hospitalized just over a week ago in [place] for chest pain that was determined to be due to anemia and he received 2 units of blood for that. Today he was feeling very good and got ready for bed. He took a couple of puffs of his inhaler that was prescribed for a cough and laid back in bed and developed chest pain directly under the sternum. He had NTG at home and after the first dose his pain was less, and after the 2nd dose his pain was gone and it has remained gone since. He arrives via EMS pain-free. An EKG en route was unremarkable and his vitals were stable. Onset: Today Onset Date: 04/23/18 Onset Time: 22:05 Duration: Minutes:, Resolved Prior to Arrival Location: Reports: Chest Quality: Reports: Burning Severity: Moderate Improves with: Reports: Medication Worsens with: Reports: Other (unknown) Context: Reports: Other (Hx of esophageal CA, remote hx of CAD, chemo today.) Associated Symptoms: Reports: No Other Symptoms Treatments MANAGER TRAFFIC: Reports: EKG, Other (see below) (NTG SL x 2) - Related Data Allergies Allergy/AdvReac Type Severity Reaction Status Date / Time tramadol Allergy Vomiting Verified 04/23/18 22:59 Home Meds: Home Meds Ezetimibe [Zetia] 10 mg PO DAILY 07/06/15 [History] Aspirin [Halfprin] 81 mg PO DAILY 07/12/16 [History] Nitroglycerin [Nitrostat] 0.4 mg SL ASDIRECTED PRN 03/26/18 [History] Past Medical History HEENT History: Reports: Impaired Vision Other HEENT History: nosebleeds; wears glasses Cardiovascular History: Reports: [place], Prior Cardiac Arrest, Stents Gastrointestinal History: Reports: Chronic Diarrhea, GERD Musculoskeletal History: Reports: Back Pain, Chronic, Other (See Below) Other Musculoskeletal History: finger. probs with sciatica L leg. chronic pain shoulder R. Low back incision check Neurological History: Reports: None Endocrine/Metabolic History: Reports: None Oncologic (Cancer) History: Reports: Esophageal - Infectious Disease History Infectious Disease History: Reports: Chicken Pox, Measles, Mumps - Past Surgical History Head Surgeries/Procedures: Reports: None HEENT Surgical History: Reports: Cataract Surgery, Tonsillectomy Cardiovascular Surgical History: Reports: Coronary Artery Stent GI Surgical History: Reports: Colonoscopy Endocrine Surgical History: Reports: Thyroid Biopsy Neurological Surgical History: Reports: Other (See Below) Other Neurological Surgeries/Procedures: fixed herniated disc 01/09/2018 Musculoskeletal Surgical History: Reports: Other (See Below) Other Musculoskeletal Surgeries/Procedures:: s/p lumbar fusion Dermatological Surgical History: Reports: None Social & Family History - Family History Family Medical History: Noncontributory - Caffeine Use Caffeine Use: Reports: Coffee, Soda, Tea ED ROS GENERAL - Review of Systems Review Of Systems: See Below Constitutional: Reports: No Symptoms HEENT: Reports: No Symptoms Respiratory: Reports: Pleuritic Chest Pain (x 2 weeks with deep breathing only, hasn't mentioned this to anyone before today.), Cough (dry, intermittant). Denies: Shortness of Breath, Wheezing, Sputum, Hemoptysis Cardiovascular: Reports: Chest Pain Endocrine: Reports: No Symptoms GI/Abdominal: Reports: No Symptoms : Reports: No Symptoms Musculoskeletal: Reports: No Symptoms Skin: Reports: No Symptoms Neurological: Reports: No Symptoms ED EXAM, GENERAL - Physical Exam Exam: See Below Exam Limited By: No Limitations General Appearance: Alert, WD/WN, No Apparent Distress Eye Exam: Bilateral Eye: Normal Inspection Ears: Normal External Exam, Normal Canal, Hearing Grossly Normal Ear Exam: Bilateral Ear: Auricle Normal, Canal Normal Nose: Normal Inspection, Normal Mucosa, No Blood Throat/Mouth: Normal Inspection, Normal Lips, Normal Oropharynx, Normal Voice, No Airway Compromise Head: Atraumatic, Normocephalic Neck: Normal Inspection, Supple, Non-Tender Respiratory/Chest: No Respiratory Distress, Lungs Clear, Normal Breath Sounds, No Accessory Muscle Use Cardiovascular: Regular Rate, Rhythm, No Edema GI/Abdominal: Normal Bowel Sounds, Non-Tender, No Distention Back Exam: Normal Inspection. No: CVA Tenderness (R), CVA Tenderness (L) Extremities: Normal Inspection, Normal Range of Motion, Non-Tender, No Pedal Edema Neurological: Alert, Oriented, CN II-XII Intact, Normal Cognition, No Motor/ Sensory Deficits Psychiatric: Normal Affect, Normal Mood Skin Exam: Warm, Dry, Intact, Normal Color, No Rash Lymphatic: No Adenopathy EKG INTERPRETATION EKG Date: 04/23/18 Time: 21:55 Rhythm: NSR Rate (Beats/Min): 77 [place]: Normal P-Wave: Present QRS: Normal ST-T: Normal QT: Normal Comparison: Change From Previous EKG (PVC's are now gone.) Course - Vital Signs Text/Narrative:: Walked around the [place] a couple times with nursing and no pain returned. Last Recorded V/S: Last Vital Signs Temp 36.4 C 04/23/18 22:49 Pulse 78 04/23/18 22:49 Resp 20 04/23/18 22:49 BP 111/48 L 04/23/18 22:49 Pulse Ox 93 L 04/23/18 22:49 - Orders/Labs/Meds Orders: Active Orders 24 hr Category Date Time Status D-DIMER QUANTITATIVE [COAG] Stat Lab 04/23/18 23:00 Received Labs: Laboratory Tests 04/23/18 Range/Units 23:00 Troponin I < 0.017 (0.000-0.056) ng/mL Departure - Departure Time of Disposition: 23:59 Disposition: Home, Self-Care 01 Condition: Good Clinical Impression: Atypical chest pain Referrals: Francis Gomez MD [Primary Care Provider] - Forms: ED Department Discharge - My Orders Last 24 Hours: My Active Orders 04/23/18 23:00 D-DIMER QUANTITATIVE [COAG] Stat - Assessment/Plan Last 24 Hours: My Active Orders 04/23/18 23:00 D-DIMER QUANTITATIVE [COAG] Stat
[2018-04-23 22:58] VITALS: BP 111/48
== END 2018-04-24 00:20 | disposition home or self-care (01) ==
LOC: JP.ED 22:47
DX: R07.89 Other chest pain (principal); C15.9 Malignant neoplasm of esophagus, unspecified; I25.10 Atherosclerotic heart disease of native coronary artery without angina pectoris; I25.2 Old myocardial infarction; K21.9 Gastro-esophageal reflux disease without esophagitis; Z79.82 Long term (current) use of aspirin; Z79.899 Other long term (current) drug therapy; Z88.5 Allergy status to narcotic agent
CPT/HCPCS: 36415; 84484; 85379; 99285

== ENCOUNTER 2018-05-14 09:48 | Observation (INO) | payer MEDICARE, BC ==
--- NOTE | 2018-05-14 11:39 | EDM.PDOC ---
ED HPI GENERAL MEDICAL PROBLEM - General Chief Complaint: Gastrointestinal Problem Stated Complaint: WEAKNESS Time Seen by Provider: 05/14/18 10:15 Source of Information: Reports: Patient, Family, Provider History Limitations: Reports: No Limitations - History of Present Illness INITIAL COMMENTS - FREE TEXT/NARRATIVE: 82-year-old male who has ongoing GI bleeding from an esophageal tumor, was released from [facility] yesterday but has decided today due to weakness and persistent bleeding that he no longer wants care. This was discussed with his oncology nurse provider and his family, and he was brought into the emergency room for placement into a nursing facility so he could start receiving comfort cares. He is too weak to be taken care of at home and has not had a hospice consultation as of yet. This morning he was passing clots from the rectum which he has done in the past. Severity: Severe Associated Symptoms: Reports: Malaise, Weakness - Related Data Allergies Allergy/AdvReac Type Severity Reaction Status Date / Time tramadol Allergy Vomiting Verified 05/14/18 10:06 Home Meds: Home Meds Aspirin [Halfprin] 81 mg PO DAILY 07/12/16 [History] Nitroglycerin [Nitrostat] 0.4 mg SL ASDIRECTED PRN 03/26/18 [History] Carvedilol 3.125 mg PO BID 05/14/18 [History] Clopidogrel Bisulfate [Clopidogrel] 75 mg PO DAILY 05/14/18 [History] Furosemide 40 mg PO BID 05/14/18 [History] Melatonin 05/14/18 [History] Pantoprazole [ProTONIX] 40 mg PO DAILY 05/14/18 [History] Prochlorperazine [Compazine] 10 mg PO Q6H PRN 05/14/18 [History] Past Medical History HEENT History: Reports: Impaired Vision Other HEENT History: nosebleeds; wears glasses Cardiovascular History: Reports: [place], Prior Cardiac Arrest, Stents Gastrointestinal History: Reports: Chronic Diarrhea, GERD Musculoskeletal History: Reports: Back Pain, Chronic, Other (See Below) Other Musculoskeletal History: finger. probs with sciatica L leg. chronic pain shoulder R. Low back incision check Neurological History: Reports: None Endocrine/Metabolic History: Reports: None Hematologic History: Reports: Anemia, Blood Transfusion(s) Oncologic (Cancer) History: Reports: Esophageal - Infectious Disease History Infectious Disease History: Reports: Chicken Pox, Measles, Mumps - Past Surgical History HEENT Surgical History: Reports: Cataract Surgery, Tonsillectomy Cardiovascular Surgical History: Reports: Coronary Artery Stent GI Surgical History: Reports: Colonoscopy Endocrine Surgical History: Reports: Thyroid Biopsy Neurological Surgical History: Reports: Other (See Below) Other Neurological Surgeries/Procedures: fixed herniated disc 01/09/2018 Musculoskeletal Surgical History: Reports: Other (See Below) Other Musculoskeletal Surgeries/Procedures:: s/p lumbar fusion Social & Family History - Family History Family Medical History: Noncontributory - Tobacco Use Smoking Status *Q: Never Smoker - Caffeine Use Caffeine Use: Reports: None - Recreational Drug Use Recreational Drug Use: No ED ROS GENERAL - Review of Systems Review Of Systems: See Below Constitutional: Reports: Malaise, Weakness. Denies: Fever, Chills Respiratory: Denies: Shortness of Breath Cardiovascular: Denies: Chest Pain GI/Abdominal: Reports: Hematochezia. Denies: Abdominal Pain Skin: Reports: Pallor Neurological: Reports: Weakness Psychiatric: Reports: No Symptoms ED EXAM, GI/ABD - Physical Exam Exam: See Below Exam Limited By: No Limitations General Appearance: Alert, No Apparent Distress (Appears tired) Eyes: Bilateral: Normal Appearance (No significant jaundice or pallor) Respiratory/Chest: No Respiratory Distress Cardiovascular: Regular Rate, Rhythm GI/Abdominal Exam: Soft, Non-Tender Neurological: Alert, Oriented Skin Exam: Warm, Dry Course - Vital Signs Last Recorded V/S: Last Vital Signs Temp 98.7 F 05/15/18 07:43 Pulse 82 05/15/18 07:43 Resp 16 05/15/18 07:43 BP 88/44 L 05/15/18 07:43 Pulse Ox 94 L 05/15/18 07:43 - Orders/Labs/Meds Orders: Medication Orders Acetaminophen (Tylenol) 650 mg PO Q4H PRN PRN Reason: Pain (Mild 1-3)/fever Aspirin (Halfprin) 81 mg PO DAILY [facility] Last Admin: 05/15/18 08:58 Dose: 81 mg Clopidogrel Bisulfate (Plavix) 75 mg PO DAILY [facility] Last Admin: 05/15/18 08:58 Dose: 75 mg Lorazepam (Ativan Oral Concentrate 1mg/0.5 Ml U/D) 0.5 mg PO Q2H PRN PRN Reason: Anxiety Melatonin (Melatonin) 9 mg PO BEDTIME PRN PRN Reason: Insomnia Morphine Sulfate (Morphine 10 Mg/0.5 Ml Oral Syringe) 5 mg PO Q1H PRN PRN Reason: Pain Nitroglycerin (Nitrostat) 0.4 mg SL ASDIRECTED PRN PRN Reason: Chest Pain Ondansetron HCl (Zofran) 4 mg IV Q4H PRN PRN Reason: Nausea/Vomiting Oxycodone HCl (Oxycodone) 5 mg PO Q4H PRN PRN Reason: Pain (moderate 4-6) Pantoprazole Sodium (Protonix) 40 mg PO ACBREAKFAST LOI Last Admin: 05/15/18 08:58 Dose: 40 mg Meds: Medications Generic Name Dose Route Start Last Admin Trade Name Freq PRN Reason Stop Dose Admin Acetaminophen 650 mg 05/14/18 17:09 Tylenol PO Q4H PRN Pain (Mild 1-3)/fever Aspirin 81 mg 05/15/18 09:00 05/15/18 08:58 Halfprin PO 81 mg DAILY LOI Administration Clopidogrel Bisulfate 75 mg 05/15/18 09:00 05/15/18 08:58 Plavix PO 75 mg DAILY LOI Administration Lorazepam 0.5 mg 05/14/18 17:09 Ativan Oral Concentrate 1mg/0.5 Ml U/D PO Q2H PRN Anxiety Melatonin 9 mg 05/14/18 17:09 Melatonin PO BEDTIME PRN Insomnia Morphine Sulfate 5 mg 05/14/18 17:09 Morphine 10 Mg/0.5 Ml Oral Syringe PO Q1H PRN Pain Nitroglycerin 0.4 mg 05/14/18 17:09 Nitrostat SL ASDIRECTED PRN Chest Pain Ondansetron HCl 4 mg 05/14/18 17:09 Zofran IV Q4H PRN Nausea/Vomiting Oxycodone HCl 5 mg 05/14/18 17:09 Oxycodone PO Q4H PRN Pain (moderate 4-6) Pantoprazole Sodium 40 mg 05/15/18 09:00 05/15/18 08:58 Protonix PO 40 mg ACBREAKFAST LOI Administration - Re-Assessments/Exams Free Text/Narrative Re-Assessment/Exam: 05/14/18 11:38 After discussion with the family and the nurse provider, no further workup or labs were drawn. Our only goal at this time is to get him comfort cares in a facility that accepts VA payments. 05/14/18 12:17 The patient's had a consultation with the VA telephone services sales representative here in [place] within the last 2 hours, his information was to contact primary care VA provider in [place], Dr. Janette Lala, which I did and discussed the situation. She needed confirmation that the patient, family, and the provider's are all in agreement that only comfort cares her hospice treatment is requested at this time which is confirmed. She can also discussed this with [place], the nurse practitioner oncologist at the clinic that is aware of the situation and Dr. Lala was provided with that number. Patient's only contact number was confirmed and is [phone]. Departure - Departure Time of Disposition: 17:12 Disposition: Admitted As Inpatient 66 Condition: Serious Clinical Impression: Blood loss anemia Esophageal cancer Qualifiers: Malignant neoplasm of esophagus location: lower third Qualified Code(s): C15.5 - Malignant neoplasm of lower third of esophagus - Discharge Information
--- NOTE | 2018-05-14 17:01 | PCM.HP ---
H&P History of Present Illness - General Date of Service: 05/14/18 Admit Problem/Dx: Admission Diagnosis/Problem Admission Diagnosis/Problem Anemia Source of Information: Patient, Family, Provider, RN Notes Reviewed History Limitations: Reports: No Limitations - History of Present Illness Initial Comments - Free Text/Narative: Mr. Welsh is an 82-year-old gentleman who was admitted through the emergency department with progressive weakness secondary to esophageal carcinoma, GI bleed , and anemia. He has decided that he wants no further aggressive interventions, testing, or lab draws. He would like comfort cares only and is admitted at this time to facilitate hospice admission. - Related Data Allergies/Adverse Reactions: Allergies Allergy/AdvReac Type Severity Reaction Status Date / Time tramadol Allergy Vomiting Verified 05/14/18 10:06 Home Medications: Home Meds Aspirin [Halfprin] 81 mg PO DAILY 07/12/16 [History] Nitroglycerin [Nitrostat] 0.4 mg SL ASDIRECTED PRN 03/26/18 [History] Carvedilol 3.125 mg PO BID 05/14/18 [History] Clopidogrel Bisulfate [Clopidogrel] 75 mg PO DAILY 05/14/18 [History] Furosemide 40 mg PO BID 05/14/18 [History] Melatonin 05/14/18 [History] Pantoprazole [ProTONIX] 40 mg PO DAILY 05/14/18 [History] Prochlorperazine [Compazine] 10 mg PO Q6H PRN 05/14/18 [History] Past Medical History HEENT History: Reports: Impaired Vision Other HEENT History: nosebleeds; wears glasses Cardiovascular History: Reports: CO, Prior Cardiac Arrest, Stents Gastrointestinal History: Reports: Chronic Diarrhea, GERD Musculoskeletal History: Reports: Back Pain, Chronic, Other (See Below) Other Musculoskeletal History: finger. probs with sciatica L leg. chronic pain shoulder R. Low back incision check Neurological History: Reports: None Endocrine/Metabolic History: Reports: None Hematologic History: Reports: Anemia, Blood Transfusion(s) Oncologic (Cancer) History: Reports: Esophageal - Infectious Disease History Infectious Disease History: Reports: Chicken Pox, Measles, Mumps - Past Surgical History HEENT Surgical History: Reports: Cataract Surgery, Tonsillectomy Cardiovascular Surgical History: Reports: Coronary Artery Stent GI Surgical History: Reports: Colonoscopy Endocrine Surgical History: Reports: Thyroid Biopsy Neurological Surgical History: Reports: Other (See Below) Other Neurological Surgeries/Procedures: fixed herniated disc 01/09/2018 Musculoskeletal Surgical History: Reports: Other (See Below) Other Musculoskeletal Surgeries/Procedures:: s/p lumbar fusion Social & Family History - Family History Family Medical History: Noncontributory - Tobacco Use Smoking Status *Q: Never Smoker - Caffeine Use Caffeine Use: Reports: None - Recreational Drug Use Recreational Drug Use: No H&P Review of Systems - Review of Systems: Review Of Systems: See Below General: Reports: Weakness, Weight Loss. Denies: Fever, Chills HEENT: Reports: Dysphasia Pulmonary: Reports: No Symptoms Cardiovascular: Reports: No Symptoms Gastrointestinal: Reports: No Symptoms Genitourinary: Reports: No Symptoms Musculoskeletal: Reports: No Symptoms Exam - Exam Exam: See Below - Vital Signs Vital Signs: Last Vital Signs Temp 97.9 F 05/14/18 10:19 Pulse 77 05/14/18 13:52 Resp 16 05/14/18 13:52 BP 121/55 L 05/14/18 13:52 Pulse Ox 96 05/14/18 13:52 Weight: 126 lb - Exam HEENT: Conjunctiva Clear, Hearing Intact, Normal Nasal Septum, Posterior Pharynx Clear, Pupils Equal. No: Mucosa Moist & [place] Neck: Supple, Trachea Midline, +2 Carotid Pulse wo Bruit Lungs: Clear to Auscultation, Normal Respiratory Effort Cardiovascular: Regular Rate, Regular Rhythm, Normal S1, Normal S2. No: Systolic Murmur, Diastolic Murmur GI/Abdominal Exam: Soft, Non-Tender, No Organomegaly, No Distention Extremities: Non-Tender, No Pedal Edema Skin: Warm, Dry, Intact Neurological: Cranial Nerves Intact, Strength Equal Bilateral, Normal Speech, Normal Tone, Sensation Intact. No: Focal Deficit Neuro Extensive - Mental Status: Alert, Oriented x3, Normal Mood/Affect, Normal Cognition, Memory Intact *Q Meaningful Use (ADM) - VTE *Q VTE Mechanical Contraindications *Q: Tx/Proc Refused byPt VTE Pharmacological Contraindications *Q: Active Hemorrhage - VTE Risk Assess *Q Each Risk Factor Represents 1 Point: None Total Score 1 Point Risk Factors: 0 Each Risk Factor Represents 2 Points: Malignancy (present or previous) Total Score 2 Point Risk Factors: 2 Each Risk Factor Represents 3 Points: Age 75 Years or Greater Total Score 3 Point Risk Factors: 3 Each Risk Factor Represents 5 Points: None Total Score 5 Point Risk Factors: 0 Venous Thromboembolism Risk Factor Score *Q: 5 Problem List Initiated/Reviewed/Updated: Yes Orders Last 24hrs: Active Orders 24 hr Category Date Time Status Patient Status Manage Transfer [TRANSFER] Routine ADT 05/14/18 16:46 Ordered Resuscitation Status Routine Resus Stat 05/14/18 16:47 Ordered Assessment/Plan Comment:: ASSESSMENT AND PLAN ESOPHAGEAL CARCINOMA-complicated by ongoing GI bleed with resultant acute blood loss anemia. He has undergone chemotherapy as well as endoscopy for evaluation of his bleed and several blood transfusions. He has decided to stop all aggressive interventions and would like comfort cares only and hospice admission. -Morphine and lorazepam as needed for comfort -Hospice admission for ongoing care ACUTE BLOOD LOSS ANEMIA CORONARY ARTERY DISEASE-status post angioplasty and stent placement 2 weeks ago. Current therapy with aspirin and Plavix complicating his ongoing upper GI bleed PALLIATIVE CARE-he no longer wants aggressive interventions or testing, requesting comfort cares only and hospice admission MAINTENANCE ISSUES -DVT prophylaxis; not indicated with comfort cares -GI prophylaxis; continue outpatient PPI therapy -Pruett catheter; not indicated -Nutrition; regular diet -Nicotine dependence; not required CODE STATUS- DNR/DNI/COMFORT CARES ONLY ADMISSION STATUS-this patient will be admitted to observation status, expect no more than a one night hospital stay for evaluation and management of problems as outlined above. DISPOSITION-anticipate discharge under hospice care PRIMARY CARE PROVIDER-Dr. Gomez
[2018-05-14] MEDS ORDERED: Morphine 10 MG/0.5 ML Oral Syringe PO PRN (17:09)
[2018-05-14] MEDS ORDERED: Melatonin 3 MG Tab PO PRN (17:09)
[2018-05-14] MEDS ORDERED: Nitroglycerin 0.4 MG Tab.SL SL PRN (17:09)
[2018-05-14] MEDS ORDERED: Acetaminophen 325 MG Tab PO PRN (17:09)
[2018-05-14] MEDS ORDERED: Ondansetron 4 MG/2 ML SDV IV PRN (17:09)
[2018-05-14] MEDS ORDERED: LORazepam ORAL Concentrate 1MG/0.5ML U/D PO PRN (17:09)
[2018-05-15 07:45] VITALS: BP 88/44
[2018-05-15] MEDS: Pantoprazole 40 MG Tab.CR PO SCH (08:58)
[2018-05-15] MEDS: Aspirin 81 MG Tab.EC PO SCH (08:58)
[2018-05-15] MEDS: Clopidogrel 75 MG Tab PO SCH (08:58)
--- NOTE | 2018-05-15 17:59 | PCM.PN ---
- General Info Date of Service: 05/15/18 Subjective Update: Mr. Welsh has been stable since admission yesterday, currently denies significant pain or anxiety. There is been no further evidence of active bleeding. He is planning on going home tomorrow with hospice admission after discharge. Functional Status: Denies: Tolerating Diet - Review of Systems General: Reports: Weakness. Denies: Fever, Chills Pulmonary: Reports: No Symptoms Cardiovascular: Reports: No Symptoms Gastrointestinal: Reports: No Symptoms - Patient Data Vitals - Most Recent: Last Vital Signs Temp 98.7 F 05/15/18 07:43 Pulse 82 05/15/18 07:43 Resp 16 05/15/18 07:43 BP 88/44 L 05/15/18 07:43 Pulse Ox 94 L 05/15/18 07:43 Weight - Most Recent: 130 lb I&O - Last 24 Hours: Intake & Output 05/15/18 05/15/18 05/15/18 06:59 14:59 22:59 Intake Total 160 160 Balance 160 160 Med Orders - Current: Current Medications Acetaminophen (Tylenol) 650 mg PO Q4H PRN PRN Reason: Pain (Mild 1-3)/fever Aspirin (Halfprin) 81 mg PO DAILY [facility] Last Admin: 05/15/18 08:58 Dose: 81 mg Clopidogrel Bisulfate (Plavix) 75 mg PO DAILY [facility] Last Admin: 05/15/18 08:58 Dose: 75 mg Lorazepam (Ativan Oral Concentrate 1mg/0.5 Ml U/D) 0.5 mg PO Q2H PRN PRN Reason: Anxiety Melatonin (Melatonin) 9 mg PO BEDTIME PRN PRN Reason: Insomnia Morphine Sulfate (Morphine 10 Mg/0.5 Ml Oral Syringe) 5 mg PO Q1H PRN PRN Reason: Pain Nitroglycerin (Nitrostat) 0.4 mg SL ASDIRECTED PRN PRN Reason: Chest Pain Ondansetron HCl (Zofran) 4 mg IV Q4H PRN PRN Reason: Nausea/Vomiting Oxycodone HCl (Oxycodone) 5 mg PO Q4H PRN PRN Reason: Pain (moderate 4-6) Pantoprazole Sodium (Protonix) 40 mg PO ACBREAKFAST [facility] Last Admin: 05/15/18 08:58 Dose: 40 mg - Exam General: Alert, Oriented, Cooperative, Mild Distress Lungs: Clear to Auscultation, Normal Respiratory Effort Cardiovascular: Regular Rate, Regular Rhythm, No Murmurs GI/Abdominal Exam: Soft, Non-Tender, No Organomegaly, No Distention Extremities: Non-Tender, No Pedal Edema - Problem List Review Problem List Initiated/Reviewed/Updated: Yes - My Orders Last 24 Hours: My Active Orders 05/14/18 17:09 Patient Status [ADT] Routine Notify Provider Vital Signs [RC] ASDIRECTED Oxygen Therapy [RC] PRN Up With Assistance [RC] ASDIRECTED VTE/DVT Education [RC] Per Unit Routine Vital Signs [RC] .PRN Consult to Hospice [CONS] Routine Acetaminophen [Tylenol] 650 mg PO Q4H PRN LORazepam [Ativan ORAL Concentrate 1MG/0.5 ML U/D] 0.5 mg PO Q2H PRN Melatonin 9 mg PO BEDTIME PRN Morphine [Morphine 10 MG/0.5 ML Oral Syringe] 5 mg PO Q1H PRN Nitroglycerin [Nitrostat] 0.4 mg SL ASDIRECTED PRN Ondansetron [Zofran] 4 mg IV Q4H PRN oxyCODONE 5 mg PO Q4H PRN VTE Mechanical Contraindications [AST] Per Unit Routine VTE Pharmacological Contraindications [AST] Per Unit Routine 05/15/18 09:00 Aspirin [Halfprin] 81 mg PO DAILY Clopidogrel [Plavix] 75 mg PO DAILY Pantoprazole [ProTONIX] 40 mg PO ACBREAKFAST - Plan Plan:: ASSESSMENT AND PLAN ESOPHAGEAL CARCINOMA-complicated by ongoing GI bleed with resultant acute blood loss anemia. He has undergone chemotherapy as well as endoscopy for evaluation of his bleed and several blood transfusions. He has decided to stop all aggressive interventions and would like comfort cares only and hospice admission. -Morphine and lorazepam as needed for comfort -Hospice admission for ongoing care ACUTE BLOOD LOSS ANEMIA CORONARY ARTERY DISEASE-status post angioplasty and stent placement 2 weeks ago. Current therapy with aspirin and Plavix complicating his ongoing upper GI bleed PALLIATIVE CARE-he no longer wants aggressive interventions or testing, requesting comfort cares only and hospice admission MAINTENANCE ISSUES -DVT prophylaxis; not indicated with comfort cares -GI prophylaxis; continue outpatient PPI therapy -Pruett catheter; not indicated -Nutrition; regular diet -Nicotine dependence; not required CODE STATUS- DNR/DNI/COMFORT CARES ONLY ADMISSION STATUS-this patient will be admitted to observation status, expect no more than a one night hospital stay for evaluation and management of problems as outlined above. DISPOSITION-anticipate discharge under hospice care PRIMARY CARE PROVIDER-Dr. Gomez
[2018-05-16] MEDS: oxyCODONE 5 MG Tab PO PRN ×2 (05:44→09:39)
--- NOTE | 2018-05-16 08:20 | PCM.DCSUM1 ---
Discharge Summary - Hospital Course Brief History: Mr. Welsh is an 82-year-old gentleman who is admitted through the emergency department with severe weakness secondary to underlying esophageal carcinoma and recurrent GI bleeds with acute blood loss anemia. Diagnosis: Stroke: No - Discharge Data Discharge Date: 05/16/18 Discharge Disposition: DC/Tfer to Hospice - Home 49 Condition: Poor - Discharge Diagnosis/Problem(s) (1) Coronary artery disease SNOMED Code(s): 74034590 ICD Code: I25.10 - ATHSCL HEART DISEASE OF [place] CORONARY ARTERY W/O ANG PCTRS Status: Acute Current Visit: Yes (2) Blood loss anemia SNOMED Code(s): 166463143 ICD Code: D50.0 - IRON DEFICIENCY ANEMIA SECONDARY TO BLOOD LOSS (CHRONIC) Status: Acute Current Visit: Yes (3) Esophageal cancer SNOMED Code(s): 326787659 ICD Code: C15.9 - MALIGNANT NEOPLASM OF ESOPHAGUS, UNSPECIFIED Status: Acute Current Visit: Yes Qualifiers: Malignant neoplasm of esophagus location: lower third Qualified Code(s): C15.5 - Malignant neoplasm of lower third of esophagus - Patient Summary/Data Consults: Consultations 05/14/18 17:09 Consult to Hospice [CONS] Routine Comment: Physician Instructions: Hospital Course: Mr. Welsh is an 82-year-old gentleman who was admitted through the emergency department with progressive weakness secondary to esophageal carcinoma, GI bleed , and anemia. He has decided that he wants no further aggressive interventions, testing, or lab draws. He would like comfort cares only and is admitted to facilitate hospice admission. On admission morphine and lorazepam were ordered as needed for comfort. No additional laboratory studies or diagnostic tests were performed, per patient request for comfort cares. He was seen and evaluated by the hospitalist team on the day after admission and was felt to be appropriate for hospice admission after discharge. Activity will be as tolerated and he will resume his usual diet. - Patient Instructions Diet: Usual Diet as Tolerated Activity: As Tolerated Other/Special Instructions: Admit to hospice after discharge from hospital. - Discharge Plan *PRESCRIPTION DRUG MONITORING PROGRAM REVIEWED*: Not Applicable *COPY OF PRESCRIPTION DRUG MONITORING REPORT IN PATIENT EMIGDIO: Not Applicable Home Medications: Home Meds Aspirin [Halfprin] 81 mg PO DAILY 07/12/16 [History] Nitroglycerin [Nitrostat] 0.4 mg SL ASDIRECTED PRN 03/26/18 [History] Carvedilol 3.125 mg PO BID 05/14/18 [History] Clopidogrel Bisulfate [Clopidogrel] 75 mg PO DAILY 05/14/18 [History] Furosemide 40 mg PO BID 05/14/18 [History] Melatonin 05/14/18 [History] Pantoprazole [ProTONIX] 40 mg PO DAILY 05/14/18 [History] Prochlorperazine [Compazine] 10 mg PO Q6H PRN 05/14/18 [History] Referrals: Francis Gomez MD [Primary Care Provider] - - Discharge Summary/Plan Comment DC Time >30 min.: No - Patient Data Vitals - Most Recent: Last Vital Signs Temp 98.7 F 05/15/18 07:43 Pulse 82 05/15/18 07:43 Resp 16 05/15/18 07:43 BP 88/44 L 05/15/18 07:43 Pulse Ox 94 L 05/15/18 07:43 Weight - Most Recent: 130 lb I&O - Last 24 hours: Intake & Output 05/15/18 05/16/18 05/16/18 22:59 06:59 14:59 Intake Total 160 100 Balance 160 100 Med Orders - Current: Current Medications Acetaminophen (Tylenol) 650 mg PO Q4H PRN PRN Reason: Pain (Mild 1-3)/fever Aspirin (Halfprin) 81 mg PO DAILY [facility] Last Admin: 05/15/18 08:58 Dose: 81 mg Clopidogrel Bisulfate (Plavix) 75 mg PO DAILY [facility] Last Admin: 05/15/18 08:58 Dose: 75 mg Lorazepam (Ativan Oral Concentrate 1mg/0.5 Ml U/D) 0.5 mg PO Q2H PRN PRN Reason: Anxiety Melatonin (Melatonin) 9 mg PO BEDTIME PRN PRN Reason: Insomnia Morphine Sulfate (Morphine 10 Mg/0.5 Ml Oral Syringe) 5 mg PO Q1H PRN PRN Reason: Pain Nitroglycerin (Nitrostat) 0.4 mg SL ASDIRECTED PRN PRN Reason: Chest Pain Ondansetron HCl (Zofran) 4 mg IV Q4H PRN PRN Reason: Nausea/Vomiting Oxycodone HCl (Oxycodone) 5 mg PO Q4H PRN PRN Reason: Pain (moderate 4-6) Last Admin: 05/16/18 05:44 Dose: 5 mg Pantoprazole Sodium (Protonix) 40 mg PO ACBREAKFAST [facility] Last Admin: 05/15/18 08:58 Dose: 40 mg - Exam General: Reports: Alert, Oriented, Cooperative, Mild Distress Lungs: Reports: Clear to Auscultation, Normal Respiratory Effort Cardiovascular: Reports: Regular Rate, Regular Rhythm, No Murmurs GI/Abdominal Exam: Soft, Non-Tender, No Organomegaly, No Distention *Q Meaningful Use (DIS) - VTE *Q VTE Mechanical Contraindications *Q: Tx/Proc Refused byPt VTE Pharmacological Contraindications *Q: Active Hemorrhage
[2018-05-16] MEDS: Pantoprazole 40 MG Tab.CR PO SCH (09:17)
[2018-05-16] MEDS: Clopidogrel 75 MG Tab PO SCH (09:17)
[2018-05-16] MEDS: Aspirin 81 MG Tab.EC PO SCH (09:17)
== END 2018-05-16 10:50 | disposition hospice, home (50) ==
LOC: JP.ED 09:48 → JP.MS 16:46
PROVIDERS: ADMIT Hospitalist; ATTEND Hospitalist
DX: C15.5 Malignant neoplasm of lower third of esophagus (principal); R53.1 Weakness; D50.0 Iron deficiency anemia secondary to blood loss (chronic); I25.10 Atherosclerotic heart disease of native coronary artery without angina pectoris; I25.2 Old myocardial infarction; K21.9 Gastro-esophageal reflux disease without esophagitis; Z79.82 Long term (current) use of aspirin; Z79.899 Other long term (current) drug therapy; Z88.5 Allergy status to narcotic agent; Z88.6 Allergy status to analgesic agent
CPT/HCPCS: 99285; A9270; G0378